=== PATIENT | female | born 1960 | race African-American/Black ===

== ENCOUNTER 2023-11-16 18:48 | Emergency (ER) | payer OTHER ==
[~2023-11-16] VITALS: Ht 160 cm; Wt 108.9 kg
[2023-11-16] MEDS ORDERED: IBUPROFEN 600 MG TABLET ONE (19:17)
[2023-11-16] MEDS: IBUPROFEN 600 MG TABLET PO ONE (19:20)
[2023-11-16] MEDS ORDERED: CYCL5TAB PO (20:26)
[2023-11-16] MEDS ORDERED: ACET-2605 PO (20:26)
[2023-11-16] MEDS ORDERED: ACETAMINOPHEN ES 500 MG TABLET PO ONE (20:30)
[2023-11-16 21:21] VITALS: BP 145/81; TEMP 98; O2SAT 99
== END 2023-11-16 21:21 | disposition home or self-care (01) ==
LOC: ER 18:52
DX: M25.511 Pain in right shoulder (principal); R51.9 Headache, unspecified; R42 Dizziness and giddiness; Z88.0 Allergy status to penicillin; V89.2XXA Person injured in unspecified motor-vehicle accident, traffic, initial encounter; Y93.89 Activity, other specified; Y92.488 Other paved roadways as the place of occurrence of the external cause; Y99.8 Other external cause status
CPT/HCPCS: 73030-TC